=== PATIENT | female | born 1945 | race Caucasian/White ===

== ENCOUNTER → 2016-11-21 | Outpatient (CLI) | payer MEDICARE, BC ==
[2016-11-21 09:40] LABS: HEMOGLOBIN 11.9 g/dL (11.7-16.4)
[2016-11-21 10:17] LABS: DIFF TOTAL CELLS COUNTED 100 CELL DIFF
[2016-11-21 10:38] LABS: POLYCHROMASIA 1+; VERIFY COUNTS? YES
== END | disposition home or self-care (01) ==
LOC: LAB 09:24
PROVIDERS: ATTEND Internal Medicine Hematology & Oncology
DX: C21.0 Malignant neoplasm of anus, unspecified (principal); K12.31 Oral mucositis (ulcerative) due to antineoplastic therapy; D70.1 Agranulocytosis secondary to cancer chemotherapy; D69.6 Thrombocytopenia, unspecified
CPT/HCPCS: 36415; 85025